=== PATIENT | male | born 1990 | race Two or more races ===

== ENCOUNTER 2019-06-20 07:04 | Emergency (ER) | payer OTHER, MEDICAID, BC ==
[~2019-06-20] VITALS: Ht 177.8 cm; Wt 113.4 kg
[2019-06-20 07:15] VITALS: BP 178/100
--- NOTE | 2019-06-20 07:15 | NUR ---
ED Nurse Note: Pt brought into ER from work by ambulance. 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 Pt L hand tingling, slight numbness. No pain. Pt a&ox4. EKG taken. in room with pt. No acute distress. Will cont to monitor.
--- NOTE | 2019-06-20 07:19 | Emergency Room Report ---
History of Present Illness General Chief Complaint: General Complaint Source: Patient Present Illness HPI Patient presents with complaints of shock sensation Reports offloading some material into a freezer just prior to arrival As he was offloading the material he lost his balance and grabbed a doorway with his left hand at that point feeling a jolt in his shock At this time feels much better however he does feel some ongoing Tingling sensation in the left hand Denies any pain to the feet or the other hand denies any headache Denies any chest pain currently or shortness of breath Allergies: Coded Allergies: No Known Allergies (Unverified , 06/20/19) Patient History Past Medical History: see triage record Reviewed Nursing Documentation: PMH: Agreed; PSxH: Agreed Nursing Documentation-PMH Past Medical History: No Stated History Review of Systems All Other Systems: negative except mentioned in HPI Physical Exam Vital Signs Date Time Temp Pulse Resp B/P (MAP) Pulse Ox O2 Delivery O2 Flow Rate FiO2 06/20/19 07:03 98.1 88 18 185/108 (133) 96 Room Air Sp02 EP Interpretation: reviewed, normal General Appearance: well appearing, no apparent distress Head: normocephalic, atraumatic Eyes: bilateral eye PERRL, bilateral eye EOMI ENT: hearing grossly normal, EOM grossly intact Neck: supple Respiratory: lungs clear Cardiovascular #1: regular rate, rhythm Gastrointestinal: non tender, soft Musculoskeletal: normal inspection Neurologic: alert, oriented x3, sensory intact - 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, however he does report subjective neuropathy to the left, fingers all digits Psychiatric: normal inspection Skin: no rash Lymphatic: no adenopathy Medical Decision Making Diagnostic Impression: Primary Impression: Electric shock ER Course Given the patient's history and presentation multiple differentials are considered including but not limited to electric shock with cardiac pathology,, exit entry wound, muscle injury, compartment syndrome Patient is able to make fist appropriately EKG is normal Patient does not show any signs of exit wound At this time is stable for close outpatient follow-up EKG Diagnostic Results Rate: normal Rhythm: NSR ST Segments: no acute changes Rhythm Strip Diag. Results EP Interpretation: yes Rate: 77 Rhythm: NSR, no PVC's, no ectopy Last Vital Signs Date Time Temp Pulse Resp B/P (MAP) Pulse Ox O2 Delivery O2 Flow Rate FiO2 06/20/19 07:03 98.1 88 18 185/108 (853) 96 Room Air Status: improved Disposition: HOME, SELF-CARE Condition: Stable Scripts No Active Prescriptions or Reported Meds Additional Instructions: Patient is provided with the discharge instructions notified to follow up with primary doctor in the next 2-3 days otherwise return to the er with any worsening symptoms. Please note that this report is being documented using DRAGON technology. This can lead to erroneous entry secondary to incorrect interpretation by the dictating instrument. Arin Elise DO Jun 20, 2019 07:19
[2019-06-20 07:48] VITALS: BP 142/68
--- NOTE | 2019-06-20 07:48 | NUR ---
ER DISCHARGE NOTE: Patient is cleared to be discharged per ERMD, pt is aox4, on room air, with stable vital signs. pt was given dc instructions, pt was able to verbalize understanding, pt id band removed. pt is able to ambulate with steady gait. pt took all belongings. Work note provided.
== END 2019-06-20 07:48 | disposition home or self-care (01) ==
LOC: EDBD 07:04 → EMR 07:20
DX: T75.4XXA Electrocution, initial encounter (principal); W86.8XXA Exposure to other electric current, initial encounter; Y92.9 Unspecified place or not applicable
CPT/HCPCS: 93005; 99283